=== PATIENT | male | born 1970 | race African-American/Black ===

== ENCOUNTER 2024-09-22 22:05 | Emergency (ER) | payer OTHER, SELFPAY ==
[2024-09-22 23:39] LABS: Absolute Basophils 0.1 K/uL (0-0.5); Absolute Eosinophils 0.3 K/uL (0-0.5); Absolute Lymphocytes (CBC) 3.5 K/uL (0.7-4.9); Absolute Monocytes 0.7 K/uL (0.1-1.3); Absolute Neutrophil 4.5 K/uL (1.8-8.0); Eosinophils % 3.5 % (0-4.4); Hematocrit 41.5 % (39.6-49.0); Hemoglobin 14.6 g/dL (13.6-17.9); Lymphocytes % 38.3 % (15.3-44.8); MCH 28.2 pg (27.0-35.0); MCHC 35.1 g/dL (32.0-36.0); MCV 80.5 fL (80-100); MPV 7.8 fL (7.6-11.3); Monocytes % 7.7 % (3.3-12.3); Neutrophils % 49.5 % (41.7-73.7); Nucleated Red Blood Cells % 0.2 % (0-0); Platelets 274 thou/uL (152-406); RBC Red Blood Cell Count 5.16 M/uL (4.33-5.43); Red Cell Distribution Width 13.8 % (12.1-15.2)
[2024-09-22 23:40] LABS: Protime INR 1.24
[2024-09-22 23:54] LABS: ALT/SGPT 62 U/L (16-61); AST/SGOT 39 U/L (15-37); Albumin 3.6 g/dL (3.4-5.0); Albumin/Globulin Ratio 0.8 (1.1-1.8); Alkaline Phosphatase 73 U/L (45-117); Anion Gap 10.7 mEq/L (5.0-15.0); BUN Blood Urea Nitrogen 15 mg/dL (7-18); Bicarbonate 26 mEq/L (21-32); Bilirubin Direct < 0.2 mg/dL (0-0.2); Bilirubin Indirect, Calculated 0.1 mg/dL (0.2-0.8); Bilirubin Total 0.3 mg/dL (0.2-1.0); Globulin 4.6 g/dL (2.3-3.5); Glomerular Filtration Rate 72 ml/min (=/>90); Glucose Level 111 mg/dL (74-106); Potassium 3.7 mEq/L (3.5-5.1); Protein, Total 8.2 g/dL (6.4-8.2); Sodium Level 135 mEq/L (136-145); Troponin High Sensitivity 41.4 pg/mL (<58.9)
[2024-09-23] MEDS ORDERED: lisinopriL 10 MG TAB ONE (00:25)
--- NOTE | 2024-09-23 01:21 | EDPHYS ---
Physician Documentation [facility] Name: Ellen Hendrix III Age: 53 yrs Sex: Male : 1970 Arrival Date: 09/22/2024 Time: 22:05 Bed 16 Private MD: ED Physician Yariel Lee HPI: 09/22 22:50 This 53 yrs old Black Male presents to ER via Ambulatory with complaints of High Blood cp Pressure, Headache. 22:50 The patient has elevated blood pressure and discovered this at home, with a home device.cp 22:50 Onset: The symptoms/episode began/occurred today, checked blood pressure with home cp device and measured systolic pressure of 189. 22:50 Associated signs and symptoms: Pertinent positives: headache, Pertinent negatives: cp chest pain, lightheadedness, nausea, vomiting. Patient reports he had recent appt with primary care physician who is having him monitor blood pressure and has not started him on blood pressure medication. Historical: - Allergies: 22:16 No Known Allergies; dd2 - PMHx: 22:16 Hypertensive disorder; dd2 - PSHx: 22:16 FOOT SX; Tonsillectomy; dd2 - Immunization history:: Adult Immunizations up to date. - Infectious Disease History:: Denies. - Social history:: Smoking status: Patient denies any tobacco usage or history of. ROS: 22:55 Constitutional: Negative for body aches, chills, fever, cp 22:55 Eyes: Negative for injury, pain, redness, and discharge, cp 22:55 Cardiovascular: Negative for chest pain, edema, palpitations, 22:55 Respiratory: Negative for cough, shortness of breath, wheezing, 22:55 Abdomen/GI: Negative for abdominal pain, vomiting, diarrhea, constipation, 22:55 Neuro: Positive for headache, Negative for altered mental status, dizziness, gait disturbance, numbness, syncope, weakness, 22:55 All other systems are negative, Exam: 23:08 Constitutional: The patient appears in no acute distress, alert, awake, cp non-diaphoretic, non-toxic, well developed, well nourished, obese, 23:08 Head/Face: Normocephalic, atraumatic. cp 23:08 Eyes: Periorbital structures: appear normal, Conjunctiva: normal, no exudate, no cp injection, Sclera: no appreciated abnormality, Lids and lashes: appear normal, bilaterally, 23:08 ENT: External ear(s): are unremarkable, Nose: is normal, Mouth: Lips: moist, Oral mucosa: moist, Posterior pharynx: Airway: no evidence of obstruction, patent, 23:08 Neck: ROM/movement: is normal, is supple, without pain, no range of motions limitations, 23:08 Chest/axilla: Inspection: normal, 23:08 Cardiovascular: Rate: normal, Rhythm: regular, Edema: is not appreciated, JVD: is not appreciated, 23:08 Respiratory: the patient does not display signs of respiratory distress, Respirations: normal, no use of accessory muscles, no retractions, labored breathing, is not present, Breath sounds: are clear throughout, no decreased breath sounds, no stridor, no wheezing, 23:08 Abdomen/GI: Inspection: obese Palpation: abdomen is soft and non-tender, in all quadrants, 23:08 Back: pain, is absent, ROM is normal, 23:08 Neuro: Orientation: to person, place \T\ time. Mentation: is normal, Cerebellar function: is grossly normal, Motor: moves all fours, strength is normal, Sensation: is normal, 23:20 ECG was reviewed by the Attending Physician. Vital Signs: 22:13 BP 180 / 104; Pulse 74; Resp 17; Temp 98.1; Pulse Ox 100% ; Weight 131.54 kg; Height 5 dd2 ft. 10 in. ; 23:38 BP 151 / 99; Pulse 77; Resp 16; Pulse Ox 98% on R/A; jb4 09/23 00:28 BP 149 / 107; Pulse 70; Resp 16; Pulse Ox 98% on R/A; jb4 09/22 22:13 Body Mass Index 41.61 (131.54 kg, 177.8 cm) dd2 MDM: 05 22:29 Medical Screening Exam initiated 09/23 00:00 Differential diagnosis: hypertensive crisis, Malignant HTN, CVA, intracerebral cp hemorrhage. 01:20 Data reviewed: vital signs, nurses notes, lab test result(s), EKG, radiologic studies, cp CT scan, and as a result, I will discharge patient. 01:20 I considered the following discharge prescriptions or medication management in the cp emergency department Medications were administered in the Emergency Department. See JUL. 01:20 Care significantly affected by the following chronic conditions: Obesity. Counseling: I cp had a detailed discussion with the patient and/or guardian regarding the historical points, exam findings, and any diagnostic results supporting the discharge/admit diagnosis, the presence of at least one elevated blood pressure reading (>120/80) during this emergency department visit, lab results, radiology results, the need for outpatient follow up, for definitive care, a family practitioner, to return to the emergency department if symptoms worsen or persist or if there are any questions or concerns that arise at home. Response to treatment: the patient's symptoms have mildly improved after treatment. 09/22 22:47 Order name: Basic Metabolic Panel; Complete Time: 00:18 cp 09/22 22:47 Order name: CBC with Diff; Complete Time: 00:18 cp 09/22 22:47 Order name: LFT's; Complete Time: 00:18 cp 09/22 22:47 Order name: Magnesium; Complete Time: 00:18 cp 09/22 22:47 Order name: PT-INR; Complete Time: 00:18 cp 09/22 22:47 Order name: Troponin HS; Complete Time: 00:18 cp 09/22 23:26 Order name: CT Head Brain wo Cont cp 09/22 22:47 Order name: EKG; Complete Time: 22:48 cp 09/22 22:47 Order name: Cardiac monitoring; Complete Time: 23:21 cp 09/22 22:47 Order name: EKG - Nurse/Tech; Complete Time: 23:21 cp 09/22 22:47 Order name: IV Saline Lock; Complete Time: 23:39 cp 09/22 22:47 Order name: Labs collected and sent; Complete Time: 23:40 cp 09/22 22:47 Order name: O2 Per Protocol; Complete Time: 23:21 cp 09/22 22:47 Order name: O2 Sat Monitoring; Complete Time: 23:21 cp EC/12 23:20 Rate is 73 beats/min. Rhythm is regular. IL interval is normal. QRS interval is normal. cp QT interval is normal. T waves are Inverted in leads III, aVR. Interpreted by me. Reviewed by me. Administered Medications: 09/23 00:27 Drug: Lisinopril PO 10 mg PO once Route: PO; jb4 Disposition: 23:37 Co-signature as Attending Physician, Yariel Lee MD I agree with the assessment sp4 and plan of care. I reviewed the patient's care provided by the Advanced Practice Provider and agree with the diagnosis and treatment plan. Disposition Summary: 09/23/24 01:20 Discharge Ordered Notes: Location: Home cp Problem: new cp Symptoms: have improved cp Condition: Stable cp Diagnosis - Hypertensive heart disease without heart failure cp - Headache cp Followup: cp - With: Private Physician - When: 2 - 3 days - Reason: Recheck today's complaints Discharge Instructions: - Discharge Summary Sheet cp - General Headache Without Cause cp - Hypertension, Adult cp - Aspirin and Your Heart cp - Form - Blood Pressure Record Sheet cp - How to Take Your Blood Pressure cp Forms: - Medication Reconciliation Form cp - Antibiotic Education cp - Prescription Opioid Use cp - Patient Portal Instructions cp - Leadership Thank You Letter cp Prescriptions: - Lisinopril 20 mg Oral tablet - take 0.5 tablet ORAL route once daily; 20 tablet; Refills: 0, Product Selection cp Permitted Signatures: Dispatcher [employer] EDMS Jeanmarie Blancas PA PA cp Abiel Rodriguez, RN RN jb4 Yariel Lee MD MD sp4 CHAPO SORIA RN RN dd2 Corrections: (The following items were deleted from the chart) 09/22 22:48 22:48 BASIC METABOLIC PANEL+C.LAB.BRZ ordered. EDMS EDMS 22:48 22:48 CBC+H.LAB.BRZ ordered. EDMS EDMS 22:48 22:48 HEPATIC FUNCTION+C.LAB.BRZ ordered. EDMS EDMS 22:48 22:48 MAGNESIUM+C.LAB.BRZ ordered. EDMS EDMS 22:48 22:48 PROTIME (+INR)+COAG.LAB.BRZ ordered. EDMS EDMS 22:48 22:48 Troponin High Sensitivity+C.LAB.BRZ ordered. EDMS EDMS
--- NOTE | 2024-09-23 01:21 | ER ---
Nurse's Notes [facility] Name: Ellen Hendrix III Age: 53 yrs Sex: Male : 1970 Arrival Date: 09/22/2024 Time: 22:05 Bed 16 Private MD: Diagnosis: Hypertensive heart disease without heart failure;Headache Presentation: 09/22 22:13 Chief complaint: Patient states: WAS CHECKING BP FOR LOG AND IT READ 189/115, AND dd2 REPORTS SLIGHT HEADACHE. PT REPORTS RECENTLY DIAGNOSED BUT NOT ON MEDICATIONS OF THIS TIME. Coronavirus screen: At this time, the client does not indicate any symptoms associated with coronavirus-19. Ebola Screen: No symptoms or risks identified at this time. Initial Sepsis Screen: Does the patient meet any 2 criteria? No. Patient's initial sepsis screen is negative. Does the patient have a suspected source of infection? No. Patient's initial sepsis screen is negative. Risk Assessment: Do you want to hurt yourself or someone else? Patient reports no desire to harm self or others. Onset of symptoms was September 22, 2024. 22:13 Method Of Arrival: Ambulatory dd2 22:13 Acuity: KOKO 3 dd2 Triage Assessment: 22:16 Headache History: Denies prior headaches. General: Appears in no apparent distress. dd2 Behavior is calm, cooperative, appropriate for age. Pain: Complains of pain in top of head Pain does not radiate. Pain currently is 4 out of 10 on a pain scale. Quality of pain is described as pressure, Pain began gradually, Also complains of no other associated symptoms. EENT: No deficits noted. No signs and/or symptoms were reported regarding the EENT system. Neuro: Level of Consciousness is awake, alert, obeys commands, Oriented to person, place, time, situation, Appropriate for age School Business Administrator are equal bilaterally Moves all extremities. Gait is steady, Speech is normal, Facial symmetry appears normal, Reports headache frontal area. Cardiovascular: Reports ELEVATED BP Patient's skin is warm and dry. Historical: - Allergies: 22:16 No Known Allergies; dd2 - PMHx: 22:16 Hypertensive disorder; dd2 - PSHx: 22:16 FOOT SX; Tonsillectomy; dd2 - Immunization history:: Adult Immunizations up to date. - Infectious Disease History:: Denies. - Social history:: Smoking status: Patient denies any tobacco usage or history of. Screenin:39 [facility] ED Fall Risk Assessment (Adult) History of falling in the last 3 months, jb4 including since admission No falls in past 3 months (0 pts) Confusion or Disorientation No (0 pts) Intoxicated or Sedated No (0 pts) Impaired Gait No (0 pts) Mobility Assist Device Used No (0 pt) Altered Elimination No (0 pt) Score/Fall Risk Level 0 - 2 = Low Risk Oriented to surroundings, Maintained a safe environment. Abuse screen: Denies threats or abuse. Nutritional screening: No deficits noted. Tuberculosis screening: No symptoms or risk factors identified. Assessment: 23:38 Reassessment: Patient appears in no apparent distress at this time. Patient and/or jb4 family updated on plan of care and expected duration. Pain level reassessed. Patient is alert, oriented x 3, equal unlabored respirations, skin warm/dry/pink. 09/23 01:41 Reassessment: Patient appears in no apparent distress at this time. Patient and/or jb4 family updated on plan of care and expected duration. Pain level reassessed. Patient is alert, oriented x 3, equal unlabored respirations, skin warm/dry/pink. Vital Signs: 09/22 22:13 BP 180 / 104; Pulse 74; Resp 17; Temp 98.1; Pulse Ox 100% ; Weight 131.54 kg; Height 5 dd2 ft. 10 in. ; 23:38 BP 151 / 99; Pulse 77; Resp 16; Pulse Ox 98% on R/A; jb4 09/23 00:28 BP 149 / 107; Pulse 70; Resp 16; Pulse Ox 98% on R/A; jb4 09/22 22:13 Body Mass Index 41.61 (131.54 kg, 177.8 cm) dd2 ED Course: 09/22 22:08 Patient arrived in ED. im 22:12 Jeanmarie Blancas PA is PHCP. cp 22:12 Yariel Lee MD is Attending Physician. cp 22:16 Triage completed. dd2 22:16 Arm band placed on left wrist. dd2 23:39 Patient has correct armband on for positive identification. Bed in low position. Call jb4 light in reach. Side rails up X 1. Provided Education on: plan of care. 23:50 CT Head Brain wo Cont In Process Unspecified. EDMS 09/23 01:41 No provider procedures requiring assistance completed. IV discontinued, intact, jb4 bleeding controlled, No redness/swelling at site. Pressure dressing applied. Administered Medications: 00:27 Drug: Lisinopril PO 10 mg PO once Route: PO; jb4 Medication: 09/22 23:39 VIS not applicable for this client. jb4 Outcome: 09/23 01:20 Discharge ordered by . xenia 01:41 Discharged to home ambulatory, jb4 01:41 Condition: stable 01:41 Discharge instructions given to patient, Instructed on discharge instructions, follow up and referral plans. medication usage, Demonstrated understanding of instructions, follow-up care, medications, Prescriptions given X 1, 01:42 Patient left the ED. jb4 Signatures: Dispatcher [employer] EDWI Jeanmarie Blancas PA PA cp Bryson, James, RN RN jb4 Calli Seth DIANA RN RN dd2
--- NOTE | 2024-09-23 01:22 | RAD REPORT ---
EXAM: CT Head Without Intravenous Contrast CLINICAL HISTORY: HEADACHE TECHNIQUE: Axial computed tomography images of the head/brain without intravenous contrast. Sagittal and coron al reformatted images were created and reviewed. This CT exam was performed using one or more of the following dose reduction techniques: automated exposure control, adjustment of the mA and/or kV according to patient size, and/or use of iterative reconstruction technique. COMPARISON: No relevant prior studies available. FINDINGS: Brain: Unremarkable. No hemorrhage. No significant white matter disease. No edema. Ventricles: Unremarkable. No ventriculomegaly. Bones/joints: Remote left medial orbital wall fracture deformity. Soft tissues: Unremarkable. Sinuses: Left maxillary and right sphenoid sinus mucus retention cysts/polyps. Mastoid air cells: Unremarkable as visualized. No mastoid effusion. IMPRESSION: No acute intracranial or extra-axial abnormality. Electronically signed by: Myke Christine MD 09/23/2024 12:41 AM CDT RP Due to temporary technical issues with the PACS/[employer] reporting system, reports are being hyun d by the in-house radiologist without review as a courtesy to ensure prompt reporting the interpreting radiologist is fully responsible for the content of the report. Transcribed Date/Time: 09/23/2024 1:22 AM
[2024-09-23 01:47] VITALS: TEMP 98.1
[2024-09-23 01:48] VITALS: O2SAT 98
[2024-09-23 01:49] VITALS: BP 149/107
--- NOTE | 2024-09-24 12:22 | EKG ---
Test Date: 2024-09-22 Test Time: 23:14:23 Senior Environmental Engineer: [place] MEASUREMENT RESULTS: Intervals: Rate: 73 IN: 164 QRSD: 90 QT: 378 QTc: 416 [place]: P: 30 IN: 164 QRS: 85 T: 7 INTERPRETIVE STATEMENTS: Normal sinus rhythm Normal ECG No previous ECG available for comparison Electronically Signed On 09-24-24 12:20:52 CDT by Enrique Thrasher
== END 2024-09-23 01:42 | disposition home or self-care (01) ==
LOC: ER 22:05
DX: I11.9 Hypertensive heart disease without heart failure (principal)
CPT/HCPCS: 36415; 70450; 80048; 80076; 83735; 84484; 85025; 85610; 93005; 99283